=== PATIENT | female | born 1990 | race African-American/Black ===

== ENCOUNTER 2018-05-01 18:34 | Emergency (ER) | payer MEDICAID, OTHER ==
[~2018-05-01] VITALS: Ht 165.1 cm; Wt 59.0 kg
[2018-05-01] MEDS ORDERED: Albuterol ud Inhalation HHN ONE (18:45)
[2018-05-01] MEDS ORDERED: Ipratropium 0.02% Inh Soln 2.5ml UD HHN ONE (18:45)
--- NOTE | 2018-05-01 19:01 | Emergency Room Report ---
History of Present Illness General Chief Complaint: Medical Clearance Source: Patient Present Illness HPI 27-year-old female presents ED for evaluation. Brought in by [employer]. In police custody. Patient here for fci clearance. Was arrested and subsequently complained of asthma attack. Agitated and combative. Spit mask in place. States that she cannot find her inhaler. States shortness of breath started only today after rest. Denies any cough. Denies any chest pain. Denies any drug use. No other aggravating relieving factors. Denies any other associated symptoms Allergies: Coded Allergies: AMOXAPINE (Verified Allergy, Unknown, 05/01/18) PENICILLINS (Unverified Allergy, Unknown, 05/01/18) Uncoded Allergies: PENICILLIN (Allergy, Unknown, 05/01/18) Patient History Past Medical History: asthma Past Surgical History: none Pertinent Family History: none Social History: Reports: alcohol use; Denies: smoking, drug use Now: No - UNK Immunizations: UTD Reviewed Nursing Documentation: PMH: Agreed; PSxH: Agreed Nursing Documentation-PMH Hx Asthma: Yes - POSSIBLE Review of Systems All Other Systems: negative except mentioned in HPI Physical Exam Vital Signs Date Time Temp Pulse Resp B/P (MAP) Pulse Ox O2 Delivery O2 Flow Rate FiO2 05/01/18 18:33 97.8 78 26 132/84 100 Room Air 97.9 Sp02 EP Interpretation: reviewed, normal General Appearance: alert, GCS 15, non-toxic, other - agitated Head: normocephalic, atraumatic Eyes: bilateral eye normal inspection, bilateral eye PERRL ENT: hearing grossly normal, normal pharynx, no angioedema, normal voice Neck: full range of motion, supple/symm/no masses Respiratory: chest non-tender, decreased breath sounds, speaking full sentences , wheezing Cardiovascular #1: regular rate, rhythm, no edema Cardiovascular #2: 2+ carotid (R), 2+ carotid (L), 2+ radial (R), 2+ radial (L) , 2+ dorsalis pedis (R), 2+ dorsalis pedis (L) Gastrointestinal: normal bowel sounds, non tender, soft, non-distended, no guarding, no rebound Rectal: deferred Genitourinary: normal inspection, no CVA tenderness Musculoskeletal: back normal, gait/station normal, normal range of motion, non- tender Neurologic: alert, oriented x3, responsive, motor strength/tone normal, sensory intact, speech normal Psychiatric: judgement/insight normal, memory normal, mood/affect normal, no suicidal/homicidal ideation Reflexes: 3+ bicep (R), 3+ bicep (L), 3+ tricep (R), 3+ tricep (L), 3+ knee (R) , 3+ knee (L) Skin: normal color, no rash, warm/dry, well hydrated Lymphatic: no adenopathy Medical Decision Making Diagnostic Impression: Primary Impression: Medical clearance for incarceration Additional Impression: Asthma Qualified Codes: J45.20 - Mild intermittent asthma, uncomplicated ER Course Hospital Course 27-year-old female presents to ED complaining of SOB. in [employer] custody Differential diagnoses include: URI, bronchitis, asthma/COPD, pneumonia Clinical course Patient placed on stretcher. After initial history, physical exam reveals a female in no acute distress. Bilateral TM unremarkable. No pharyngeal erythema. No tonsillar exudates. No lymphadenopathy. Mild wheezing noted on exam, no signs of respiratory distress or retractions. Patient given Prednisone and albuterol treatment in ED with symptoms improved. Patient initially combative and agitated. Now more cooperative. However appearing anxious/crying because she is to be arrested. Given Ativan here. Patient medically cleared for fci Diagnosis - medical clearance for incarceration, asthma Stable and discharged to [employer] custody with prescriptions for albuterol, prednisone. Instructed to followup with PMD. Return to ED if symptoms recur or worsen Last Vital Signs Date Time Temp Pulse Resp B/P (MAP) Pulse Ox O2 Delivery O2 Flow Rate FiO2 05/01/18 18:33 97.8 78 26 132/84 100 Room Air 97.9 Status: improved Disposition: D/C TO LAW ENFORCEMENT IN CUST Condition: Stable Scripts Prednisone* (PREDNISONE*) 20 Mg Tablet 40 MG ORAL DAILY, #10 TAB Prov: Alex Correa MD 05/01/18 Albuterol Sulfate* (ALBUTEROL SULFATE MDI*) 8.5 Gm Hfa.aer.ad 2 PUFF INH Q6H, #1 EA 0 Refills Prov: Alex Correa MD 05/01/18 Alex Correa MD May 01, 2018 19:01
[2018-05-01] MEDS ORDERED: ALBUTEROL SULF8.5 GM INH (19:15)
[2018-05-01] MEDS ORDERED: LORazepam 1mg tab ORAL ONE (19:15)
[2018-05-01] MEDS ORDERED: PREDNISONE20 MG ORAL (19:15)
[2018-05-01 19:26] VITALS: BP 132/84
[2018-05-01 19:29] VITALS: BP 106/53
[2018-05-01 19:32] VITALS: BP 106/53
== END 2018-05-01 19:41 ==
LOC: EDBD 18:34 → EMR 19:03
DX: J45.20 Mild intermittent asthma, uncomplicated (principal); Z88.0 Allergy status to penicillin; Z88.8 Allergy status to other drugs, medicaments and biological substances
CPT/HCPCS: 94640; 94664; 99283; J7512